=== PATIENT | female | born 1990 | race American Indian/Alaskan Native ===

== ENCOUNTER 2020-01-07 18:34 | Emergency (ER) | payer MEDICAID ==
[2020-01-07 18:50] VITALS: BP 100/64
[2020-01-07 19:12] LABS: Hematocrit 33.4 % (30.3-42.9); Hemoglobin 10.9 gm/dl (10.1-14.3); Mean Corpuscular HGB Conc 33 % (30-34); Mean Corpuscular Volume 84 fl (79-97); Platelet Count 292 K/mm3 (140-440); Red Blood Count 3.96 M/mm3 (3.65-5.03); Red Cell Distribution Width 16.7 % (13.2-15.2)
[2020-01-07 19:28] LABS: Bilirubin,Urine NEG (Negative); Blood,Urine NEG (Negative); Color,Urine Yellow (Yellow); Mucus,Urine 1+ /HPF; Protein,Urine <15 mg/dL mg/dL (Negative); RBC,Urine < 1.0 /HPF (0.0-6.0)
[2020-01-07 19:52] LABS: RBC Morphology Normal; Total Cells Counted 100
== END 2020-01-08 03:18 | disposition left against medical advice (07) ==
LOC: ED 18:34
DX: N93.9 Abnormal uterine and vaginal bleeding, unspecified (principal); R10.2 Pelvic and perineal pain; Z53.21 Procedure and treatment not carried out due to patient leaving prior to being seen by health care provider
CPT/HCPCS: 36415; 81001; 84703; 85007; 85025

== ENCOUNTER 2020-01-25 14:58 | Emergency (ER) | payer MEDICAID ==
[2020-01-25 15:02] VITALS: BP 116/75
[2020-01-25] MEDS ORDERED: oxyCODONE /ACETAMINOPHEN 5-325MG TAB PO ONE (15:39)
--- NOTE | 2020-01-25 15:44 | Event Note ---
ED Screening Note ED Screening Note: 29-year-old F [place]an female with a past medical history of a tubal ligation presents emerged department complaining of painful vaginal bleeding over the past 2 weeks with an episode of syncope last night due to weakness. She does have a previous history of anemia requiring 2 blood transfusions. This initial assessment/diagnostic orders/clinical plan/treatment(s) is/are subject to change based on patients health status, clinical progression and re- assessment by fellow clinical providers in the ED. Further treatment and workup at subsequent clinical providers discretion. Patient/guardian urged not to elope from the ED as their condition may be serious if not clinically assessed and managed. Initial orders include: Heavy vaginal bleeding plan is labs and ultrasound
[2020-01-25 16:16] LABS: Basophils % (Auto) 1.1 % (0.0-1.8); Eosinophils # (Auto) 0.1 K/mm3 (0.0-0.4); Eosinophils % (Auto) 1.5 % (0.0-4.3); Hemoglobin 11.1 gm/dl (10.1-14.3); Lymphocytes % (Auto) 53.1 % (13.4-35.0); Mean Corpuscular HGB Conc 34 % (30-34); Mean Corpuscular Volume 82 fl (79-97); Monocytes # (Auto) 0.3 K/mm3 (0.0-0.8); Monocytes % (Auto) 9.1 % (0.0-7.3); Platelet Count 294 K/mm3 (140-440); Red Blood Count 4.01 M/mm3 (3.65-5.03); Red Cell Distribution Width 16.1 % (13.2-15.2)
[2020-01-25 16:39] LABS: INR 1.02 (0.87-1.13)
--- NOTE | 2020-01-25 17:57 | Ultrasound Report ---
PELVIC ULTRASOUND HISTORY: Pelvic bleeding. FINDINGS: Imaging was performed by transabdominally and endovaginally. The uterus measures 8 x 4.7 x 5.7 cm and is mildly heterogeneous. No discrete lesion.. The endometrial stripe measures 7 mm. Right ovary measures 1.9 x 2.5 x 1 cm. Left ovary measures 3.4 x 2.2 x 3.6 cm. Negative for adnexal mass or fluid. IMPRESSION: 1. Heterogeneous uterus without discrete abnormality. 2. Endometrial stripe measures 7 mm which is likely cycle related. Signer Name: Ananda Burgess MD Signed: 01/25/2020 5:53 PM Workstation Name: [id number]
--- NOTE | 2020-01-25 18:18 | Emergency Department Report ---
ED Female HPI - General Chief complaint: Vaginal Bleeding Stated complaint: VAGINAL BLEEDING, ABD PAIN Time Seen by Provider: 01/25/20 18:11 Source: patient Mode of arrival: Ambulatory Limitations: No Limitations - History of Present Illness Initial comments: 29-year-old F [place]ian female G5, P4, A1 with a past medical history of a tubal ligation presents emerged department complaining of painful vaginal bleeding over the past 2 weeks . states syncopal episode last pm, She does have a previous history of anemia requiring 2 blood transfusions. pt denies symptoms at this time, no dizziness , nio lightheadeness, no headache, no cp, no sob, no back pain, states moderate bilat abd cramping that is intermittent. symptoms are exacerbated by nothing, symptoms are relieved by nothing. 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 denies: vaginal discharge, nausea/vomiting, fever/chills, headaches, dysuria, seizure, shortness of breath, weakness - Related Data Previous Rx's Medication Instructions Recorded Last Taken Type Ibuprofen [Motrin 800 MG tab] 800 mg PO Q8HR PRN #30 tablet 01/25/20 Unknown Rx medroxyPROGESTERone ACETATE 10 mg PO QDAY #10 tablet 01/25/20 Unknown Rx [Provera] Allergies Allergy/AdvReac Type Severity Reaction Status Date / Time No Known Allergies Allergy Unverified 01/07/20 18:50 ED Review of Systems ROS: Stated complaint: VAGINAL BLEEDING, ABD PAIN Other details as noted in HPI Constitutional: denies: chills, fever Eyes: denies: eye pain, eye discharge, vision change ENT: denies: ear pain, throat pain Respiratory: denies: cough, shortness of breath, wheezing Cardiovascular: denies: chest pain, palpitations Endocrine: no symptoms reported Gastrointestinal: abdominal pain. denies: nausea, vomiting, diarrhea Genitourinary: denies: urgency, dysuria, frequency, hematuria, discharge Musculoskeletal: denies: back pain, joint swelling, arthralgia Skin: denies: rash, lesions Neurological: denies: headache, weakness, numbness, paresthesias, vertigo Psychiatric: denies: anxiety, depression Hematological/Lymphatic: denies: easy bleeding, easy bruising ED Past Medical Hx - Past Medical History Previous Medical History?: No - Surgical History Past Surgical History?: Yes Additional Surgical History: times 2 - Social History Smoking Status: Never Smoker Substance Use Type: None - Medications Home Medications: Home Medications Medication Instructions Recorded Confirmed Last Taken Type Ibuprofen [Motrin 800 MG tab] 800 mg PO Q8HR PRN #30 tablet 01/25/20 Unknown Rx medroxyPROGESTERone ACETATE 10 mg PO QDAY #10 tablet 01/25/20 Unknown Rx [Provera] ED Physical Exam - General Limitations: No Limitations General appearance: alert, in no apparent distress - Head Head exam: Present: atraumatic, normocephalic - Eye Eye exam: Present: normal appearance, PERRL, EOMI. Absent: conjunctival in jection Pupils: Present: normal accommodation - ENT ENT exam: Present: mucous membranes moist - Neck Neck exam: Present: normal inspection - Respiratory Respiratory exam: Present: normal lung sounds bilaterally. Absent: respiratory distress, wheezes, stridor, chest wall tenderness - Cardiovascular Cardiovascular Exam: Present: regular rate, normal rhythm, normal heart sounds. Absent: systolic murmur, diastolic murmur, rubs, gallop - GI/Abdominal GI/Abdominal exam: Present: soft, tenderness (bilat superpubic ), normal bowel sounds. Absent: distended, guarding, rebound, rigid, bruit, hernia - Rectal Rectal exam: Present: deferred - Extremities Exam Extremities exam: Present: normal inspection, full ROM, normal capillary refill. Absent: tenderness - Back Exam Back exam: Present: normal inspection, full ROM. Absent: tenderness, CVA tenderness (R), CVA tenderness (L) - Neurological Exam Neurological exam: Present: alert, oriented X3, CN II-XII intact, normal gait, reflexes normal. Absent: motor sensory deficit - Psychiatric Psychiatric exam: Present: normal affect, normal mood - Skin Skin exam: Present: warm, dry, intact, normal color. Absent: rash ED Course Vital Signs 01/25/20 01/25/20 15:00 15:02 Temperature 98.6 F Pulse Rate 83 Respiratory 16 16 Rate Blood Pressure 116/75 [Right] O2 Sat by Pulse 100 Oximetry ED Medical Decision Making - Lab Data Result diagrams: 01/25/20 16:02 Labs 01/25/20 01/25/20 16:02 16:02 WBC 3.8 L RBC 4.01 Hgb 11.1 Hct 33.0 MCV 82 MCH 28 MCHC 34 RDW 16.1 H Plt Count 294 Lymph % (Auto) 53.1 H Braxton % (Auto) 9.1 H Eos % (Auto) 1.5 Baso % (Auto) 1.1 Lymph # (Auto) 2.0 Braxton # (Auto) 0.3 Eos # (Auto) 0.1 Baso # (Auto) 0.0 Seg Neutrophils % 35.2 L Seg Neutrophils # 1.3 L PT 13.6 INR 1.02 Labs 01/25/20 01/25/20 01/25/20 16:02 16:02 18:46 WBC 3.8 L RBC 4.01 Hgb 11.1 Hct 33.0 MCV 82 MCH 28 MCHC 34 RDW 16.1 H Plt Count 294 Lymph % (Auto) 53.1 H Braxton % (Auto) 9.1 H Eos % (Auto) 1.5 Baso % (Auto) 1.1 Lymph # (Auto) 2.0 Braxton # (Auto) 0.3 Eos # (Auto) 0.1 Baso # (Auto) 0.0 Seg Neutrophils % 35.2 L Seg Neutrophils # 1.3 L PT 13.6 INR 1.02 Urine Color Yellow Urine Turbidity Clear Urine pH 6.0 Ur Specific Perry 1.014 Urine Protein <15 mg/dl Urine Glucose (UA) Neg Urine Ketones Neg Urine Blood Sm Urine Nitrite Neg Urine Bilirubin Neg Urine Urobilinogen 2.0 Ur Leukocyte Esterase Neg Urine WBC (Auto) 1.0 Urine RBC (Auto) 3.0 Urine Mucus 1+ - Radiology Data Radiology results: report reviewed, image reviewed Findings Reporting MD: Ananda Burgess Dictation Time: January 25, 2020 16:53 Occupational 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 FINDINGS: Imaging was performed by transabdominally and endovaginally. The oumar luis angel measures 8 x 4.7 x 5.7 cm and is mildly heterogeneous. No discrete lesion.. The endometrial stripe measures 7 mm. Right ovary measures 1.9 x 2.5 x 1 cm. Left ovary measures 3.4 x 2.2 x 3.6 cm. Negative for adnexal mass or fluid. IMPRESSION: 1. Heterogeneous uterus without discrete abnormality. 2. Endometrial stripe measures 7 mm which is likely cycle related. Signer Name: Ananda Burgess MD Signed: 01/25/2020 4:53 PM Workstation Name: [id number] - Medical Decision Making Ultrasound no mass no no abnormality endometrium is normal. H&H is normal. UA is normal, there is no chest pain, dizziness, nausea vomiting, shortness of breath, lightheadedness, headache. Patient advises mild tenderness to bilateral suprapubic however there is no dysuria frequency urgency or hematuria. Mucosa appears pink and moist. Patient appears well well-hydrated well-nourished, lungs are clear throughout. Plan continue NSAIDs, Provera follow-up with TELETYPEWRITER INSTALLER in 1 to 2 days. Patient will return to ED should symptoms worsen or return. Patient verbalizes agreement and understanding with discharge plan. Patient will be DC'd home in stable condition at this time. Critical care attestation.: If time is entered above; I have spent that time in minutes in the direct care of this critically ill patient, excluding procedure time. ED Disposition Clinical Impression: Abnormal uterine bleeding (AUB) Disposition: DC-01 TO HOME OR SELFCARE Is pt being admited?: No Does the pt Need Aspirin: No Condition: Stable Instructions: Abnormal Uterine Bleeding Prescriptions: Ibuprofen [Motrin 800 MG tab] 800 mg PO Q8HR PRN #30 tablet PRN Reason: Pain medroxyPROGESTERone ACETATE [Provera] 10 mg PO QDAY #10 tablet Referrals: NATE GARCIA MD [Staff Physician] - 3-5 Days Forms: Work/School Release Form(ED) Time of Disposition: 19:32
[2020-01-25 19:25] LABS: Bilirubin,Urine NEG (Negative); Blood,Urine SM (Negative); Color,Urine Yellow (Yellow); Mucus,Urine 1+ /HPF; Protein,Urine <15 mg/dL mg/dL (Negative)
[2020-01-25] MEDS ORDERED: medroxyPROGESTERone ACETATE 5 MG TAB PO SCH (20:00)
== END 2020-01-25 20:13 | disposition home or self-care (01) ==
LOC: ED 14:58
DX: N93.9 Abnormal uterine and vaginal bleeding, unspecified (principal); Z79.1 Long term (current) use of non-steroidal anti-inflammatories (NSAID); Z79.899 Other long term (current) drug therapy
CPT/HCPCS: 36415; 76830; 76856; 81001; 85025; 85610